=== PATIENT | female | born 1970 | race Two or more races ===

== ENCOUNTER 2018-09-19 02:21 | Emergency (ER) | payer SELFPAY ==
[~2018-09-19] VITALS: Ht 152.4 cm; Wt 66.3 kg
--- NOTE | 2018-09-19 02:28 | NUR ---
Pt ambulated to room with EDT.
--- NOTE | 2018-09-19 02:38 | NUR ---
Dr. Rosa at bedside to evaluate pt.
--- NOTE | 2018-09-19 02:54 | NUR ---
RT at bedside.
[2018-09-19] MEDS ORDERED: ALBUTEROL SULFATE 2.5 MG/3 ML NPPB ONE (03:00)
--- NOTE | 2018-09-19 03:32 | NUR ---
PT APPEARS SLEEPING AT THIS TIME. PT HAS COVERS PULLED OVER HER HEAD. PT NON RESPONSIVE TO VERBAL STIMULI OR LIGHT TOUCH. COVERS REMOVED FROM OVER PTS HEAD. PT AWAKE BUT REFUSING TO ANSWERS QUESTIONS. NAD.
--- NOTE | 2018-09-19 03:40 | NUR ---
AND RN AT BEDSIDE DISCUSSING POC. PT TO BE DISHARGED. PT STATES UNDERSTANDING. PT WAS OFFERED TAXI VOUCHER TO WHICH SHE GAVE A [place] ADDRESS. PT WAS EXPLAINED $25 LIMIT ON VOUCHERS. PT STATES "I'LL JUST WALK TO THE BUS STATION". PT WAS OFFERED TAXI VOUCHER TO BUS STATION TO WHICH SHE DECLINES. PT WAS INFORMED TO GET DRESSED AT THIS TIME FOR DC, PT THEN PULLED COVERS BACK OVER HER HEAD AND REFUSED TO COMMUNICATE FURTHER.
[2018-09-19 03:42] VITALS: BP 101/64
--- NOTE | 2018-09-19 03:49 | NUR ---
PT WAS READ AND GIVEN DC INSTRUCTIONS. PT STATES UNDERSTANDING. PT HAS YET TO MOVE FROM HER PREVIOUS POSITION. PT WAS AGAIN INFORMED TO GET DRESSED SHE IS BEING DISCHARGED.
--- NOTE | 2018-09-19 03:59 | NUR ---
[employer] SALES REPRESENTATIVE AT BEDSIDE ATTEMPTING TO GET PT TO DRESS. PT STATES "ALRIGHT" AND THEN RETURNS TO HER SLEEPING POSITION. SECURITY CALLED TO HELP ESCORT PT OUT.
--- NOTE | 2018-09-19 04:12 | NUR ---
PT NOW GETTING DRESSED AFTER ENCOURAGEMENT BY SECURITY.
--- NOTE | 2018-09-19 04:16 | NUR ---
PT ESCORTED OUT BY SECURITY AT THIS TIME.
== END 2018-09-19 04:16 | disposition home or self-care (01) ==
LOC: ED 04:10
DX: J45.31 Mild persistent asthma with (acute) exacerbation (principal); Z72.9 Problem related to lifestyle, unspecified; Z75.9 Unspecified problem related to medical facilities and other health care; Z91.14 Patient's other noncompliance with medication regimen; Z63.8 Other specified problems related to primary support group
CPT/HCPCS: 71046; 94640; 99283; J7613

== ENCOUNTER 2018-10-27 07:37 | Emergency (ER) | payer MEDICAID ==
[~2018-10-27] VITALS: Ht 152.4 cm; Wt 67.0 kg
[2018-10-27 07:40] VITALS: BP 157/78
[2018-10-27] MEDS ORDERED: BACITRACIN ZINC OINT 500U/GM, 0.9 GM ONE (08:08)
== END 2018-10-27 08:27 | disposition home or self-care (01) ==
LOC: ED 08:21
DX: T20.12XA Burn of first degree of lip(s), initial encounter (principal); T31.0 Burns involving less than 10% of body surface; Z88.0 Allergy status to penicillin; Z88.2 Allergy status to sulfonamides; X10.1XXA Contact with hot food, initial encounter; Y93.89 Activity, other specified; Y92.89 Other specified places as the place of occurrence of the external cause; Y99.8 Other external cause status
CPT/HCPCS: 16000; 99284